=== PATIENT | male | born 2000 | race Asian ===

== ENCOUNTER 2024-03-20 20:38 | Inpatient (IN) | payer BC ==
[~2024-03-20] VITALS: Ht 170.2 cm; Wt 70.0 kg
[2024-03-20 21:26] LABS: BASOPHILS % (AUTO) 0.1 % (0.0-2.0); EOSINOPHILS % (AUTO) 0 % (1.0-6.0); HEMATOCRIT 53.8 % (41-53); HEMOGLOBIN 18.3 g/dL (13.5-17.5); LYMPHOCYTES % (AUTO) 8.7 % (22.0-44.0); MEAN CORPUSCULAR HEMOGLOBIN 31.1 pg (26.0-34.0); MEAN CORPUSCULAR VOLUME 92 fL (80-100); MONOCYTES # (AUTO) 0.6 K/uL (0.1-1.0); NEUTROPHILS # (AUTO) 10.4 K/uL (1.8-7.7); PLATELET COUNT (AUTO) 287 K/uL (150-450); RED BLOOD CELL COUNT(AUTO) 5.88 MIL/uL (4.50-5.90); RED CELL DISTRIBUTION WIDTH 12.6 % (11.5-14.5); WHITE BLOOD COUNT (AUTO) 12.1 K/uL (4.5-11.0)
[2024-03-20 21:27] LABS: NEUTROPHILS % (AUTO) 86.2 % (40.0-70.0)
[2024-03-20 21:30] LABS: ANION GAP 13 mmol/L (8-16); CALCIUM, TOTAL 9.4 mg/dL (8.8-10.5); CARBON DIOXIDE 25 mmol/L (22-29); CHLORIDE 101 mmol/L (98-107); CREATININE 1.17 mg/dL (0.60-1.30); GLOMERULAR FILTR. RATE CALC > 60 mL/min (>60); GLUCOSE,RANDOM 108 mg/dL (70-110); POTASSIUM 3.8 mmol/L (3.5-5.1); SODIUM SERUM 139 mmol/L (136-145); UREA NITROGEN, BLOOD 10 mg/dL (7-18)
[2024-03-20 21:33] LABS: ALCOHOL, BLOOD (SERUM) < 3 mg/dL (0-10)
[2024-03-20 21:37] LABS: RBC MORPHOLOGY COMMENT NORMAL RBC MORPH
[2024-03-20 21:38] LABS: ACETAMINOPHEN < 2 mcg/mL (10-30); SALICYLATE 1.1 mg/dL (2.8-20.0)
[2024-03-20 21:56] LABS: COVID AG,FIA SOURCE NASAL SWAB
[2024-03-20 22:14] LABS: SARS-COV2 (COVID) ANTIGEN,FIA Negative (Negative)
[2024-03-20] MEDS: SODIUM CHLORIDE 0.9% 1,000 ML IV ONE (22:37)
[2024-03-21] MEDS: LORazepam 2 MG/ML VIAL IVP ONE (00:34)
[2024-03-21] MEDS: SODIUM CHLORIDE 0.9% 1,000 ML IV ONE ×2 (02:23→10:30)
[2024-03-21 03:26] LABS: ALBUMIN 4.4 g/dL (3.4-5.0); BILIRUBIN,DIRECT 0.1 mg/dL (0.00-0.20); BILIRUBIN,TOTAL 0.4 mg/dL (0.1-1.0)
[2024-03-21 08:48] VITALS: BP 131/84; PULSE 118; RESP 19; TEMP 98.2; O2SAT 98
[2024-03-21] MEDS ORDERED: MAGNESIUM HYDROXIDE SUSPENSION 30 ML UDCUP PO PRN (10:30)
[2024-03-21] MEDS ORDERED: BISACODYL 10 MG RECTAL RECTAL SUPPOSITORY PR PRN (10:30)
[2024-03-21] MEDS ORDERED: ONDANSETRON HCL 4 MG/2 ML VIAL IVP PRN (10:30)
[2024-03-21 11:30] VITALS: BP 130/80; PULSE 108; RESP 19; TEMP 98; O2SAT 98
[2024-03-21] MEDS: HEPARIN SODIUM,PORCINE 5,000 UNITS/ML VIAL SQ SCH (15:55)
[2024-03-21 16:00] VITALS: BP 138/78; PULSE 118; RESP 19; TEMP 98.5; O2SAT 98
[2024-03-21 19:27] VITALS: BP 135/84; PULSE 109; RESP 18; TEMP 98.4; O2SAT 97
[2024-03-21] MEDS: DOCUSATE SODIUM 100 MG CAPSULE PO SCH (21:00)
[2024-03-21 23:24] VITALS: BP 140/90; PULSE 99; RESP 19; TEMP 98.1; O2SAT 97
[2024-03-22 03:40] VITALS: BP 132/84; PULSE 87; RESP 18; TEMP 98.1; O2SAT 98
[2024-03-22 07:24] VITALS: BP 128/85; PULSE 101; RESP 18; TEMP 98.7; O2SAT 99
[2024-03-22 07:32] LABS: BASOPHILS % (AUTO) 0.2 % (0.0-2.0); EOSINOPHILS % (AUTO) 0.5 % (1.0-6.0); HEMATOCRIT 46.2 % (41-53); HEMOGLOBIN 16.1 g/dL (13.5-17.5); LYMPHOCYTES # (AUTO) 2.2 K/uL (1.0-4.8); LYMPHOCYTES % (AUTO) 27.8 % (22.0-44.0); MEAN CORPUSCULAR HEMOGLOBIN 31.7 pg (26.0-34.0); MEAN CORPUSCULAR HGB CONC 34.8 G/dL (31.0-37.0); MEAN CORPUSCULAR VOLUME 91 fL (80-100); MONOCYTES # (AUTO) 0.8 K/uL (0.1-1.0); MONOCYTES % (AUTO) 10.3 % (2.0-9.0); NEUTROPHILS # (AUTO) 4.9 K/uL (1.8-7.7); NEUTROPHILS % (AUTO) 61.2 % (40.0-70.0); PLATELET COUNT (AUTO) 220 K/uL (150-450); RED BLOOD CELL COUNT(AUTO) 5.07 MIL/uL (4.50-5.90); RED CELL DISTRIBUTION WIDTH 12.5 % (11.5-14.5); WHITE BLOOD COUNT (AUTO) 7.9 K/uL (4.5-11.0)
[2024-03-22 07:35] LABS: ANION GAP 7 mmol/L (8-16); CARBON DIOXIDE 27 mmol/L (22-29); CHLORIDE 102 mmol/L (98-107); CREATININE 0.75 mg/dL (0.60-1.30); GLOMERULAR FILTR. RATE CALC > 60 mL/min (>60); GLUCOSE,RANDOM 117 mg/dL (70-110); POTASSIUM 3.2 mmol/L (3.5-5.1); SODIUM SERUM 136 mmol/L (136-145); UREA NITROGEN, BLOOD 8 mg/dL (7-18)
[2024-03-22] MEDS: PANTOPRAZOLE SODIUM 40 MG DR TABLET PO SCH (08:42)
[2024-03-22 11:37] VITALS: BP 136/87; PULSE 97; RESP 16; TEMP 98.5; O2SAT 97
[2024-03-22] MEDS: POTASSIUM CHLORIDE 20 MEQ ER TABLET PO PRN (14:54)
[2024-03-22 16:28] VITALS: BP 137/74; PULSE 98; RESP 18; TEMP 97.9; O2SAT 96
[2024-03-22 19:18] VITALS: BP 140/85; PULSE 106; RESP 18; TEMP 98.1; O2SAT 96
[2024-03-22] MEDS: ACETAMINOPHEN 325 MG TABLET PO PRN (23:59)
[2024-03-22] MEDS: ZOLPIDEM TARTRATE 5 MG TABLET PO PRN (23:59)
[2024-03-23 06:38] VITALS: BP 136/90; PULSE 84; RESP 18; TEMP 97.8; O2SAT 97
[2024-03-23 07:56] VITALS: BP 128/92; PULSE 85; RESP 18; TEMP 97.7; O2SAT 98
[2024-03-23 15:14] VITALS: BP 146/92; PULSE 103; RESP 18; TEMP 97.5; O2SAT 96
[2024-03-23 20:00] VITALS: BP 130/82; PULSE 95; RESP 18; TEMP 97.9; O2SAT 95
[2024-03-24 06:12] VITALS: BP 126/77; PULSE 92; RESP 18; TEMP 98.2; O2SAT 98
[2024-03-24 07:17] VITALS: BP 125/80; PULSE 83; RESP 18; TEMP 98.4; O2SAT 97
[2024-03-24 15:48] VITALS: BP 124/82; PULSE 87; RESP 18; TEMP 98.2; O2SAT 96
[2024-03-24 20:22] VITALS: BP 134/62; PULSE 95; RESP 20; TEMP 97.9; O2SAT 96
[2024-03-24 21:22] VITALS: BP 137/86; PULSE 101; RESP 20; TEMP 98; O2SAT 94
[2024-03-25 05:00] VITALS: BP 125/69; PULSE 87; RESP 18; TEMP 98.2; O2SAT 95
[2024-03-25 08:09] VITALS: BP 123/72; PULSE 87; RESP 18; TEMP 97.9; O2SAT 96
[2024-03-25 12:00] VITALS: BP 134/69; PULSE 89; RESP 18; TEMP 98.1; O2SAT 97
[2024-03-25 16:49] VITALS: BP 130/83; PULSE 81; RESP 18; TEMP 98.5; O2SAT 99
[2024-03-25 20:25] VITALS: BP 124/73; PULSE 85; RESP 18; TEMP 97.6; O2SAT 98
[2024-03-26 04:31] VITALS: BP 127/69; PULSE 86; RESP 18; TEMP 98.3; O2SAT 93
[2024-03-26 09:14] VITALS: BP 120/71; PULSE 91; RESP 18; TEMP 98.5; O2SAT 98
[2024-03-26 16:00] VITALS: BP 123/69
[2024-03-26 19:35] VITALS: BP 135/86; PULSE 89; RESP 18; TEMP 98.1; O2SAT 97
== END 2024-03-26 23:40 | DRG 918 ==
LOC: EMS 20:38 → EDH 03-21 07:14 → 5S 03-21 08:30 → 4E 03-22 15:20
PROVIDERS: ADMIT Internal Medicine; ATTEND Internal Medicine
DX: T50.992A Poisoning by other drugs, medicaments and biological substances, intentional self-harm, initial encounter (principal); F32.9 Major depressive disorder, single episode, unspecified; Z20.822 Contact with and (suspected) exposure to COVID-19; E87.6 Hypokalemia; Z79.899 Other long term (current) drug therapy; Z88.0 Allergy status to penicillin; Y92.89 Other specified places as the place of occurrence of the external cause
CPT/HCPCS: 80048; 80076; 83735; 84132; 85025; 93005; 99285; G0378; G0480; G0481; J1644; J2060; J7030

== ENCOUNTER 2024-03-26 16:27 | Inpatient (IN) | payer BC ==
[~2024-03-26] VITALS: Ht 167.6 cm; Wt 68.1 kg
[2024-03-26] MEDS ORDERED: HALOPERIDOL 5 MG TABLET PO PRN (23:00)
[2024-03-27] MEDS: ZOLPIDEM TARTRATE 10 MG TABLET PO PRN (02:01)
[2024-03-27 02:07] VITALS: BP 134/78; PULSE 82; RESP 18; TEMP 98; O2SAT 96
[2024-03-27] MEDS ORDERED: PNEUMOCOCCAL VACCINE POLYVALENT 0.5 ML SYRINGE [PPSV23] IM. ONE (02:30)
[2024-03-27] MEDS ORDERED: INFLUENZA VIRUS VACCINE TVS (6MO+) 2024-25/PF 45 MCG/0.5 ML SYRINGE IM. ONE (02:30)
[2024-03-27 09:00] LABS: BASOPHILS % (AUTO) 0.3 % (0.0-2.0); EOSINOPHILS % (AUTO) 1.2 % (1.0-6.0); HEMATOCRIT 48.7 % (41-53); HEMOGLOBIN 16.8 g/dL (13.5-17.5); LYMPHOCYTES # (AUTO) 3.9 K/uL (1.0-4.8); LYMPHOCYTES % (AUTO) 39.3 % (22.0-44.0); MEAN CORPUSCULAR HEMOGLOBIN 31.9 pg (26.0-34.0); MEAN CORPUSCULAR HGB CONC 34.5 G/dL (31.0-37.0); MEAN CORPUSCULAR VOLUME 92 fL (80-100); MONOCYTES # (AUTO) 0.7 K/uL (0.1-1.0); MONOCYTES % (AUTO) 6.9 % (2.0-9.0); NEUTROPHILS # (AUTO) 5.2 K/uL (1.8-7.7); NEUTROPHILS % (AUTO) 52.3 % (40.0-70.0); PLATELET COUNT (AUTO) 267 K/uL (150-450); RED BLOOD CELL COUNT(AUTO) 5.27 MIL/uL (4.50-5.90); RED CELL DISTRIBUTION WIDTH 12.6 % (11.5-14.5)
[2024-03-27 09:10] VITALS: BP 135/74; PULSE 92; RESP 18; TEMP 97.5; O2SAT 97
[2024-03-27 09:22] LABS: HEMOGLOBIN A1C 5.4 % (3.8-5.6)
[2024-03-27 09:23] LABS: ALANINE AMINOTRANSFERASE 146 U/L (12-78); ALBUMIN 3.9 g/dL (3.4-5.0); ALKALINE PHOSPHATASE 48 U/L (46-116); ANION GAP 10 mmol/L (8-16); ASPARTATE AMINOTRANSFERASE 52 U/L (15-37); BILIRUBIN,TOTAL 0.5 mg/dL (0.1-1.0); CALCIUM, TOTAL 9.1 mg/dL (8.8-10.5); CARBON DIOXIDE 27 mmol/L (22-29); CHLORIDE 100 mmol/L (98-107); CHOL/HDL RATIO 3.9 (4.2-7.3); CHOLESTEROL 167 mg/dL (131-200); CREATININE 0.66 mg/dL (0.60-1.30); GLOMERULAR FILTR. RATE CALC > 60 mL/min (>60); GLUCOSE,RANDOM 90 mg/dL (70-110); HDL CHOLESTEROL 43 mg/dL (40-60); SODIUM SERUM 137 mmol/L (136-145); UREA NITROGEN, BLOOD 16 mg/dL (7-18)
[2024-03-27] MEDS: DiphenhydrAMINE HCL 25 MG CAPSULE PO PRN (12:58)
[2024-03-27] MEDS: MECLIZINE HCL 12.5 MG TABLET PO SCH (13:00)
[2024-03-27 13:34] LABS: LDL CHOL (CALC.) 87 mg/dL (0-130); TRIGLYCERIDES 183 mg/dL (15-150)
[2024-03-27 13:50] LABS: FREE T4 (FREE THYROXINE) 1.42 ng/dL (0.76-1.46); THYROID STIMULATING HORMONE 2.17 uIU/mL (0.36-3.74)
[2024-03-27] MEDS: LITHIUM CARBONATE 300 MG CAPSULE PO SCH (17:22)
[2024-03-27 20:00] VITALS: BP 132/78; PULSE 86; RESP 18; TEMP 96.9; O2SAT 99
[2024-03-28] MEDS ORDERED: LOPERAMIDE HCL 2 MG CAPSULE PO PRN (00:45)
[2024-03-28] MEDS ORDERED: BACITRACIN 28 GM OINTMENT TP PRN (00:45)
[2024-03-28] MEDS ORDERED: DOCUSATE SODIUM 100 MG CAPSULE PO PRN (00:45)
[2024-03-28] MEDS ORDERED: PETROLATUM,WHITE 28 GM JELLY TP PRN (00:45)
[2024-03-28] MEDS ORDERED: CloNIDine HCL 0.1 MG TABLET PO PRN (00:45)
[2024-03-28] MEDS ORDERED: ALBUTEROL SULFATE HFA 90 MCG/PUFF 8 GM INHALER IH PRN (00:45)
[2024-03-28] MEDS ORDERED: MAGNESIUM HYDROXIDE SUSPENSION 30 ML UDCUP PO PRN (00:45)
[2024-03-28] MEDS ORDERED: ACETAMINOPHEN 325 MG TABLET PO PRN (00:45)
[2024-03-28] MEDS ORDERED: IBUPROFEN 600 MG TABLET PO PRN (00:45)
[2024-03-28] MEDS ORDERED: BENZOCAINE/MENTHOL LOZENGE PO PRN (00:45)
[2024-03-28] MEDS ORDERED: ONDANSETRON 4 MG TABLET PO PRN (00:45)
[2024-03-28] MEDS ORDERED: MAG HYDROX/ALUMINUM HYD/SIMETH ES 30 ML SUSPENSION UDCUP PO PRN (00:45)
[2024-03-28] MEDS ORDERED: OMEPRAZOLE 20 MG CAPSULE PO PRN (00:45)
[2024-03-28 01:09] VITALS: BP 137/82; PULSE 101; RESP 18; TEMP 97.5; O2SAT 97
[2024-03-28] MEDS: LORazepam 2 MG TABLET PO PRN (01:11)
[2024-03-28 08:30] VITALS: BP 134/86; PULSE 93; RESP 18; TEMP 97.6; O2SAT 97
[2024-03-28 09:17] LABS: APPEARANCE,URINE CLEAR (CLEAR); BILIRUBIN,URINE NEGATIVE (NEGATIVE); COLOR,URINE LIGHT YELLOW (YELLOW); GLUCOSE, URINE (UA) NEGATIVE (NEGATIVE); KETONES,URINE NEGATIVE (NEGATIVE); LEUKOCYTE ESTERASE ,URINE NEGATIVE (NEGATIVE); NITRATE,URINE NEGATIVE (NEGATIVE); OCCULT BLOOD,URINE NEGATIVE (NEGATIVE); PROTEIN,URINE NEGATIVE (NEGATIVE); SPECIFIC GRAVITIY, URINE 1.024 (1.003-1.030); UROBILINOGEN,URINE <=1.0 mg/dL (<=1.0)
[2024-03-28 09:19] LABS: ALCOHOL, URINE DRUG SCREEN NEGATIVE (NEGATIVE); AMPHET/METH SCREEN,URINE NEGATIVE (NEGATIVE); BARBITURATE SCREEN, URINE NEGATIVE (NEGATIVE); BENZODIAZEPINES SCREEN,URINE NEGATIVE (NEGATIVE); CANNABINOID SCREEN,URINE POSITIVE (NEGATIVE); COCAINE SCREEN,URINE NEGATIVE (NEGATIVE); METHADONE SCREEN, URINE NEGATIVE (NEGATIVE); OPIATE SCREEN,URINE NEGATIVE (NEGATIVE); PHENCYCLIDINE SCREEN,URINE NEGATIVE (NEGATIVE)
[2024-03-28] MEDS ORDERED: LITH300T29 PO (13:19)
[2024-03-28] MEDS ORDERED: MECL-226 PO (13:23)
== END 2024-03-28 14:42 | disposition home or self-care (01) | DRG 881 ==
LOC: B2S 03-27 00:02
PROVIDERS: ADMIT Psychiatry & Neurology Psychiatry; ATTEND Psychiatry & Neurology Psychiatry
DX: F32.A Depression, unspecified (principal); F41.9 Anxiety disorder, unspecified; G47.00 Insomnia, unspecified; K21.9 Gastro-esophageal reflux disease without esophagitis; K59.00 Constipation, unspecified; F19.10 Other psychoactive substance abuse, uncomplicated; T50.901A Poisoning by unspecified drugs, medicaments and biological substances, accidental (unintentional), initial encounter; Z72.0 Tobacco use; Y92.89 Other specified places as the place of occurrence of the external cause; J30.1 Allergic rhinitis due to pollen; Z88.1 Allergy status to other antibiotic agents; Z88.0 Allergy status to penicillin
CPT/HCPCS: 80053; 80061; 80307; 81003; 83036; 84439; 84443; 85025; 87081